=== PATIENT | female | born 1985 | race Caucasian/White ===

== ENCOUNTER 2024-10-20 13:02 | Emergency (ER) | payer OTHER, SELFPAY ==
[2024-10-20 13:05] VITALS: BP 117/77
[2024-10-20 13:06] VITALS: BP 117/77; BMI 26.2
[2024-10-20 14:00] VITALS: BP 95/79
[2024-10-20 14:14] LABS: % Basophils 0.5 % (0-2); % Eosinophils 1.3 % (0-6); % Immature Granulocytes 0.8 % (0-0.5); % Lymphocytes 21.6 % (20.5-51.1); % Monocytes 7.4 % (1.7-9.3); % Neutrophils 68.4 % (42.2-75.2); Absolute Eosinophils 0.1 10^3/uL (0-0.7); Absolute Lymphocytes 0.8 10^3/uL (1.2-3.4); Absolute Monocytes 0.3 10^3/uL (0.1-0.6); Absolute Neutrophils 2.6 10^3/uL (1.4-6.5); Hematocrit 35.7 % (37.0-47.0); Hemoglobin 12.6 g/dL (12.0-16.0); Mean Corp Hgb Conc. 35.3 g/dL (33.0-37.0); Mean Platelet Volume 10.7 fL (7.4-10.4); Nucleated Red Blood Cells % 0 %; Platelet Count 195 10^3/uL (130-400); Red Cell Dist. Width 12.5 % (11.5-14.5); White Blood Cell Count 3.8 10^3/uL (4.8-10.8)
[2024-10-20 14:35] LABS: Alcohol None Detected
[2024-10-20] MEDS: NSS 1000 IV (15:51)
[2024-10-20 16:11] LABS: Urine Albumin 2+ (Neg - Trace); Urine Bilirubin Negative (Negative); Urine Character Cloudy (Clear); Urine Color Yellow; Urine Glucose Negative (Negative); Urine Ketone Negative (Negative); Urine Leukocyte Negative (Negative); Urine Nitrite Negative (Negative); Urine Occult Blood Negative (Negative); Urine Urobilinogen Negative (Neg - 1+)
--- NOTE | 2024-10-20 16:16 | ED.GENMED ---
History of Present Illness
General
Chief Complaint: Seizure
Time Seen by Provider: 10/20/24 14:38
History of Present Illness
History of Present Illness:
39-year-old female with history of alcohol and substance abuse, seizure disorder presenting after a seizure. Patient presents from [facility] home where she had a witnessed seizure a few hours prior to arrival. Patient arrives awake and alert. She
does note history of seizures in the past, however last seizure was 3 years ago. She had previously been on Lamictal and Keppra, however stopped taking the medications while she was abusing drugs. She reports that she has been clean from alcohol
and substances for the past 3 months. She does note that she has had decreased oral hydration, so suspect contributing to her seizure. Denies any fever. Denies chest pain or difficulty breathing. Denies abdominal pain. No report of trauma from
the seizure, seated position. She does note chronic shoulder pain bilaterally. She denies additional acute medical complaints
Phy Exam
Physical Exam
Physical Exam:
General: Well-appearing, no clinical signs of dehydration, nontoxic and in no acute distress
HEENT: protecting airway
Neck: appears supple
CV: Normal heart rate, regular rhythm
Resp: No accessory muscle use, no increased work of breathing, lungs clear to auscultation bilaterally
Abd: No distention
Extremities: No deformities, no swelling
Neuro: alert, no focal neurologic deficit
: deferred
Rectal: deferred
Psych: Normal affect
Skin: Intact
Course
Orders/Labs/Results
Orders:
Orders
10/20/24 13:04
EKG [Electrocardiogram (*1)] Urgent
Reason for Study: Tachycardia
EKG- Treatment ONCE
10/20/24 14:00
Alcohol Urgent
CBC/With Diff [Complete Blood Count/With Diff] Urgent
10/20/24 15:01
Comprehensive Metabolic Panel Urgent
10/20/24 15:23
0.9% Sodium Chloride 1000 ml [Nss] 1,000 ml IV BOLUS
10/20/24 15:51
Urinalysis Reflex To Culture Urgent
Date Specimen was Collected: 10/20/24
Time Specimen was Collected: 13:05
Urine Drug Abuse Screen Urgent
Date Specimen was Collected: 10/20/24
Time Specimen was Collected: 13:05
10/20/24 15:55
Levetiracetam [Keppra] 1,000 mg PO NOW STA
Abnormal Lab Results
10/20/24
14:00
WBC 3.8 L 10^3/uL
(4.8-10.8)
Hct 35.7 L %
(37.0-47.0)
MPV 10.7 H fL
(7.4-10.4)
Absolute Lymphs (auto) 0.8 L 10^3/uL
(1.2-3.4)
Immature Gran % 0.8 H %
(0-0.5)
10/20/24 14:00
Vital Signs
Initial and Last Documented VS:
Initial Vital Signs
BP
117/77
10/20/24 13:05
Last Documented Vital Signs
Temp Pulse Resp BP Pulse Ox
98.0 F 97 10 95/79 97
10/20/24 13:06 10/20/24 14:00 10/20/24 14:00 10/20/24 14:00 10/20/24 13:45
MDM/Problems Addressed
MDM/Problems Addressed:
39-year-old female with history of seizure disorder and substance abuse presenting after a witnessed seizure. Vital signs on arrival are normal.
On exam patient is resting comfortably, no acute distress. She is afebrile, nontoxic. No signs of trauma. GCS 15. Suspected seizure from breakthrough seizure, no history of seizure disorder. Unremarkable neurologic exam without concern for
serious intracranial abnormality. Patient denies any recent substance abuse, no clinical signs of withdrawal, without concern for withdrawal seizure. EKG obtained, no acute ischemia, no arrhythmia, normal intervals, without concern for cardiac
pathology. Plan for screening laboratory analysis. Patient does have some generalized tenderness to bilateral shoulders, however notes this is chronic. No swelling or deformity.
16:15 - Labs are unremarkable. Patient remained stable. At this time feel that she is stable for discharge. Will restart patient on Keppra, with plan for outpatient neurology follow-up regarding her medication management. Patient is requesting a
refill of her propranolol which she takes for POTS. Will refill. Return precautions discussed and patient verbalized understanding
*EKG
Interpreted by ED Provider?: Yes
EKG Intrepretation Date: 10/20/24
EKG Intrepretation Time: 16:18
Interpretation: normal
Heart Rate: 93
Rate: normal
Rhythm: sinus
[place]: normal axis
Interval: normal interval
QRS Pattern: normal QRS
Ischemia: no ischemia
*Critical Care Note
Total Time (30-74mins, 75-104mins- exclusive of procedures): Not Applicable
ED Attending Note
-
Portions of this chart may have been created with voice recognition software.� Occasional wrong word or��sound alike� substitutions may have occurred due to the inherent limitations of voice recognition software.
Discharge Plan
Departure
Referrals:
NONE,* [Family Provider] -
Interventions
Interventions:
*Risk Screen - Suicide Last Done: 10/20/24 13:06
*General Assessment Last Done: 10/20/24 13:06
*Neglect/Abuse Screening Last Done: 10/20/24 13:06
*ED- Fall Risk Assessment Last Done: 10/20/24 13:06
ED- Cardiac Assessment Last Done: 10/20/24 14:03
ED- Neurological Assessment Last Done: 10/20/24 14:03
ED- Pulmonary Assessment Last Done: 10/20/24 14:03
Discharge Date and Time
Print Language: LATVIAN
[2024-10-20 16:26] LABS: Urine Squamous Cell >30 /LPF (Few)
[2024-10-20 16:27] LABS: Urine Amorphous Seen; Urine Red Blood Cell 0-2 /HPF (0-2); Urine White Cell 0-2 /HPF (0-5)
[2024-10-20 16:29] LABS: Amphetamines Negative (Negative); Barbiturates Negative (Negative); Benzodiazepines Negative (Negative); Buprenorphine Positive (Negative); Cocaine Negative (Negative); Marijuana Negative (Negative); Methadone Negative (Negative); Methamphetamines Negative (Negative); Opiates Negative (Negative); Phencyclidine Negative (Negative); Tricyclic Antidepressants Positive (Negative)
[2024-10-20] MEDS: KEPPRA 1000 MG PO (16:31)
[2024-10-20 17:04] LABS: Fentanyl, Urine Negative (Negative)
== END 2024-10-20 17:21 | disposition home or self-care (01) ==
LOC: EMR 13:02
PROVIDERS: EMERGENCY PHYSICIAN Student in an Organized Health Care Education/Training Program
DX: G40.909 Epilepsy, unspecified, not intractable, without status epilepticus (principal); G90.A Postural orthostatic tachycardia syndrome [POTS]; Z76.0 Encounter for issue of repeat prescription
CPT/HCPCS: 99283; 96360; 80306; 80307; 81003; 81015; 82077; 85025; 93005